=== PATIENT | male | born 1965 | race Caucasian/White ===

== ENCOUNTER 2016-11-02 23:57 | Emergency (ER) | payer MEDICAID ==
[~2016-11-02] VITALS: Ht 177.8 cm; Wt 73.5 kg
[2016-11-03 00:05] VITALS: BP 121/90
== END 2016-11-03 01:26 | disposition home or self-care (01) ==
LOC: ER 11-03
DX: G89.29 Other chronic pain (principal); M19.90 Unspecified osteoarthritis, unspecified site; Z88.6 Allergy status to analgesic agent
CPT/HCPCS: 99283; A4606; Z7610